=== PATIENT | male | born 1975 | race Caucasian/White ===

== ENCOUNTER 2017-11-07 16:21 | Emergency (ER) | payer OTHER ==
[~2017-11-07] VITALS: Ht 188 cm; Wt 105.1 kg
[~2017-11-07 16:21] MED LIST: LISI-360 PO
[2017-11-07 16:23] VITALS: BP 144/96; PULSE 77; RESP 16; TEMP 97.8; O2SAT 98
--- NOTE | 2017-11-07 16:36 | PD ---
HPI Chief Complaint: Laceration/Skin Injury Time Seen by Provider: 16:36 Travel History International Travel<30 days: No Contact w/Intl Traveler<30days: No Traveled to known affect area: No History of Present Illness HPI 42-year-old male presents the emergency department with laceration to the left lateral volar forearm from a pocket knife. Patient was trying to put up his Danny tree and cutting a lower limb and the knife slipped and cut himself. He denies numbness, tingling, or loss of function. Last tetanus was greater than 5 years ago. Pain is minimal. Bleeding is controlled with pressure dressing. He has no known drug allergies. PFSH Past Medical History Diminished Hearing: No Hypertension: Yes Social History Alcohol Use: Yes (sometimes 2 daily) Tobacco Use: Yes (1/4 PPD) Substance Use: No Allergies-Medications (Allergen,Severity, Reaction): Coded Allergies: No Known Allergies (Verified Allergy, Unknown, 11/07/17) Reported Meds & Prescriptions Reported Meds & Active Scripts Active Keflex (Cephalexin) 500 Mg Cap 500 Mg PO Q8H 5 Days Reported Lisinopril 10 mg (Lisinopril) 10 Mg Tab 10 Mg PO DAILY Review of Systems Except as stated in HPI: all other systems reviewed are Neg General / Constitutional: No: Fever Eyes: No: Visual changes HENT: No: Headaches Cardiovascular: No: Chest Pain or Discomfort Respiratory: No: Shortness of Breath Gastrointestinal: No: Abdominal Pain Genitourinary: No: Dysuria Musculoskeletal: No: Pain Skin: Positive Lesions (see history of present illness), No Rash Neurologic: No: Weakness Psychiatric: No: Depression Endocrine: No: Polydipsia Hematologic/Lymphatic: No: Easy Bruising Physical Exam Narrative GENERAL: Patient appears no acute distress. SKIN: Warm and dry. Normal color. Normal turgor. Patient has a V-shaped 1 cm laceration to the lateral volar left forearm midway between wrist and elbow. It does not appear to involve deep structures of the arm. HEAD: Atraumatic. Normocephalic. EYES: Pupils equal and round. No scleral icterus. No injection or drainage. ENT: No nasal bleeding or discharge. Mucous membranes pink and moist. Pharynx is clear. NECK: Trachea midline. Supple and nontender. CARDIOVASCULAR: Regular rate and rhythm. RESPIRATORY: No accessory muscle use. Clear to auscultation. Breath sounds equal bilaterally. MUSCULOSKELETAL: Extremities without clubbing, cyanosis, or edema. No obvious deformities. Range of motion is full. [employer] strength is normal. Neurovascular exam is normal. NEUROLOGICAL: Awake and alert. No obvious cranial nerve deficits. Motor grossly within normal limits. Five out of 5 muscle strength in the arms and legs. Normal speech. PSYCHIATRIC: Appropriate mood and affect; insight and judgment normal. Data Data Last Documented VS Vital Signs Date Time Temp Pulse Resp B/P (MAP) Pulse Ox O2 Delivery O2 Flow Rate FiO2 11/07/17 16:23 97.8 77 16 144/96 (112) 98 Orders Orders Tetanus/Diphtheria Tox Adult (Tetanus/Di (11/07/17 16:45) Lidocai-Epi 2%-1:100,000 Inj (Xylocaine- (11/07/17 17:00) MDM Medical Decision Making Medical Screen Exam Complete: Yes Emergency Medical Condition: Yes Differential Diagnosis Laceration. Need for tetanus. Need for wound closure. Narrative Course Tetanus is given 0.5 mg IM. Wound is repaired. Wound instructions given. Sutures should remain in place for 1 week. Patient is given Keflex 500 mg 3 times a day 5 days. Patient take Tylenol or ibuprofen as needed for pain. Patient follow-up in one week for suture removal or sooner as needed. Procedures Procedure Narrative LACERATION LOCATION: Left lateral volar forearm LENGTH: 1 cm NUMBER OF STITCHES/YULIET: 3 simple interrupted REPAIR: The area of the laceration was prepped with Betadine and sterilely draped. The laceration was infiltrated with 2 mL 2% lidocaine with epi. The wound was copiously irrigated and explored without evidence of foreign body, tendon injury or neurovascular injury. The wound was closed using 5-0 Prolene. This was a single layer repair. A sterile dressing was applied. The patient was advised to keep the dressing clean and dry. Patient tolerated the procedure well. Diagnosis Primary Impression: Laceration of left forearm without complication Qualified Codes: S51.812A - Laceration without foreign body of left forearm, initial encounter Patient Instructions: Care For Your Stitches (DC), General Instructions, Tetanus (DC) Additional Instructions: Sutures should remain in place for 1 week. Patient is given Keflex 500 mg 3 times a day 5 days. Patient take Tylenol or ibuprofen as needed for pain. Patient follow-up in one week for suture removal or sooner as needed. Med/Other Pt SpecificInfo: Prescription(s) given Scripts Cephalexin (Keflex) 500 Mg Cap 500 MG PO Q8H for Infection for 5 Days, #15 CAP 0 Refills Prov: Cynthia Pedro MD 11/07/17 Disposition: 01 DISCHARGE HOME Condition: Stable Kulwant Griffiths Nov 07, 2017 16:36
[2017-11-07] MEDS ORDERED: LIDOCAINE 1%/EPINEPHrine 1:100,000 SOLN 20 ML VIAL INFIL ONE (16:45)
[2017-11-07] MEDS ORDERED: TETANUS/DIPHTHERIA TOXOID ADULT 0.5 ML VIAL IM ONE (16:45)
[2017-11-07] MEDS ORDERED: LIDOCAINE 2%/EPINEPHrine 1:100,000 20ML MDV NERV BLOCK ONE (16:45)
[2017-11-07] MEDS ORDERED: CEPH-460 PO (16:54)
[2017-11-07] MEDS ORDERED: LIDOCAINE 2%/EPINEPHrine 1:100,000 50ML MDV INFIL ONE (17:00)
== END 2017-11-07 17:26 | disposition home or self-care (01) ==
LOC: PHEFT 16:21
DX: S51.812A Laceration without foreign body of left forearm, initial encounter (principal); I10 Essential (primary) hypertension; W26.0XXA Contact with knife, initial encounter; Z23 Encounter for immunization; Z72.0 Tobacco use
CPT/HCPCS: 12001; 90471; 90714